=== PATIENT | male | born 1950 | race Caucasian/White ===

== ENCOUNTER 2018-05-24 19:50 | Observation (INO) | payer OTHER, MEDICARE ==
[~2018-05-24] VITALS: Ht 193 cm; Wt 97.7 kg
--- NOTE | ~2018-05-24 | HEMODYNAMI ---
PATIENT:SALLY WILLIAMSON MEDICAL RECORD: [id number] : 52 LOCATION:[facility] D.2121 ADMISSION DATE: 05/24/18 Generatedon:05/25/201813:20 Patient name: SALLY WILLIAMSON Patient #: [id number] SSN: : 1950 Date of study: 05/25/2018 Page: Of Hemodynamic Procedure Report Patient Data Patient Demographics Procedure consent was obtained First Name: SALLY Gender: Male Last Name: TERI : 1950 [facility] Initial: JUDIE Age: 68 year(s) Patient #: [id number] Race: Unknown Additional ID: [id number] Contact details Address: [place] [address] State: [place] City: [place] Zip code: [address] Admission Admission Data Admission Date: 05/24/2018 Admission Time: 21:27 Arrival Date: 05/24/2018 Arrival Time: 21:27 Admit Source: Other Insurance Payor: Private Room #: D.2121 health insurance Height (in.): 75.98 BSA: 2.28 (m2) Height (cm.): 193 BMI: 26.04 (kg/m2) Weight (lbs.): 213.85 Weight (kg.): 97 Lab Results Lab Result Date: 05/25/2018 Lab Result Time: 0:00 Biochemistry Name Units Result Min Max BUN mg/dl 18 --(---*)-- 7 18 Creatinine mg/dl 0.8 --(-*--)-- 0.6 1.3 CBC Name Units Result Min Max Hemoglobin g/dl 15 --(-*--)-- 13.5 17.5 Procedure Procedure Types Cath Procedure Diagnostic Procedure C LHC w/Coronaries Procedure Description Procedure Date Procedure Date: 05/25/2018 Procedure Start Time: 13:05 Procedure End Time: 13:19 Procedure Staff Name Function Dom Penaloza MD Performing Physician Amilcar Reddy RN Form Maker Maya Dawson RT Monitor Yareli Siddiqui RN Nurse Wendi Irvin RT Scrub Procedure Data Cath Procedure Fluoroscopy Diagnostic fluoroscopy Total fluoroscopy Time: 1.1 time: 1.1 min min Diagnostic fluoroscopy Total fluoroscopy dose: 381 dose: 381 mGy mGy Contrast Material Contrast Material Type Amount (ml) Isovue 300 63 Entry Location Entry Primary Successful Side Size Upsize Upsize Entry Closure Succes sful Closure Location (Fr) 1 (Fr) 2 (Fr) Remarks Device Remarks Femoral Right 5 Fr Exoseal artery Estimated blood loss: 5 ml Diagnostic catheters Device Type Used For End Catheter Placement MULTIPACK JL 4.0 5Fr Left Coronary catheter Angiography MULTIPACK 3DRC 5Fr Right Coronary catheter Angiography MULTIPACK Pigtail 5 Fr LV Angiography catheter Procedure Complications No complications Procedure Medications Medication Administration Route Dosage 0.9% NaCl I.V. 100 ml/hr Oxygen etCO2 Nasal cannula 2 l/min Lidocaine 2% added to field 20 Heparin Flush Bag added to field 2 bags (1000units/500ml NS) Versed I.V. 2 mg Fentanyl I.V. 50 mcg Versed I.V. 2 mg Fentanyl I.V. 50 mcg Hemodynamics Rest BSA: 2.28 (m2) HGB: 15 (g/dl) O2 Consumption: Estimated: 258.6 (ml/min) O2 Consu mption indexed: Estimated:113.42 (ml/min/m) Heart Rate: 63 (bpm) Pressure Samples Time Site Value (mmHg) Purpose Heart Use Rate(bpm) 13:11 LV 120/-1,16 Snapshot 75 13:12 AO 122/59(84) Pullback 73 13:12 LV 129/10,25 Pullback 73 Gradients Valve Time Site 1 Site 2 Mean SEP/DFP Peak To Heart Use (mmHg) (sec/min) Peak Rate (mmHg) (bpm) Aortic 13:12 LV AO 10 14 7 73 129/10,25 122/59(84) Calculations Valve P-P Mean Valve Index Valve Source Name Gradient Area Flow (cm2) Aortic 7 10 7 10 Snapshots Pre Cath Intra NCS Post Cath Vital Signs Time Heart Resp SPO2 etCO2 NIBP (mmHg) Rhythm Pain Sedation Rate (ipm) (%) (mmHg) Status Level (bpm) 12:52:36 68 12 100 29.4 144/84(120) NSR 0 (11) 10(A) , No pain 12:56:52 64 16 100 30.9 129/70(97) NSR 0 (11) 10(A) , No pain 13:01:04 66 11 100 25.6 118/67(95) NSR 0 (11) 10(A) , No pain 13:05:12 70 13 99 25.6 131/66(99) NSR 0 (11) 9(A) , No pain 13:09:24 72 11 99 35.4 125/71(101) NSR 0 (11) 9(A) , No pain 13:13:36 76 14 99 26.4 119/63(93) NSR 0 (11) 9(A) , No pain 13:17:46 71 13 98 30.6 132/61(98) NSR 0 (11) 10(A) , No pain Medications Time Medication Route Dose Verified Delivered Reason Notes Eff ectiveness by by 12:52:43 0.9% NaCl I.V. 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 2 mg Dom Yareli for Tremaine Siddiqui sedation RN 12:56:53 Fentanyl I.V. 50 Dom Yareli for mcg Tremaine Siddiqui sedation RN 13:01:49 Versed I.V. 2 mg Dom Yareli for Tremaine Siddiqui sedation RN 13:01:58 Fentanyl I.V. 50 Dom Yareli for mcg Tremaine Siddiqui sedation warehouse order picker Log Time Note 12:29:44 Amilcar Reddy RN sent for patient. Start room use. 12:29:45 Time tracking: Regular hours (M-F 7:00 - 5:00) 12:29:49 Plan of Care:Hemodynamics will remain stable., Cardiac rhythm will remain stable., Comfort level will be maintained., Respiratory function will remain adequate., Patient/ family verbilizes understanding of procedure., Procedure tolerated without complication., Recovers from procedure without complications.. 12:51:16 Patient received from PCU to CCL 2 Alert and oriented. Tansferred to table in Supine position. 12:51:17 Warm blankets applied, and elisabeth hugger turned on for patient comfort. 12:51:17 Correct patient and procedure confirmed by team. 12:51:18 Signed procedure consent form obtained from patient. 12:51:19 ECG and BP/O2 sat monitors applied to patient. 12:51:20 Full Disclosure recording started 12:51:25 Vital chart was started 12:52:43 0.9% NaCl 100 ml/hr I.V. was administered by Yareli Siddiqui RN; used for procedure; 12:52:50 Oxygen 2 l/min etCO2 Nasal cannula was administered by Yareli Siddiqui RN; used for procedure; 12:52:56 Lidocaine 2% 20ml vial added to field was administered by Dom Penaloza MD; for local anesthetic; 12:53:00 Heparin Flush Bag (1000units/500ml NS) 2 bags added to field was administered by Dom Penaloza MD; used for procedure; 12:54:46 Baseline sample Acquired. 12:54:49 Rhythm: sinus rhythm 12:54:57 H&P Date Dictated: 05/25/2018 New H&P dictated by physician.. 12:54:58 Pre-procedure instructions explained to patient. 12:54:59 Pre-op teaching completed and patient verbalized understanding. 12:55:02 Family in patients room. 12:55:03 Patient NPO since Midnight. 12:55:05 Is the patient allergic to Iodine/contrast media? No. 12:55:07 Was the patient premedicated? No 12:55:08 Is patient on blood thinner?No 12:55:09 Patient diabetic? No. 12:55:11 Previous problem with sedation/anesthesia? No ? 12:55:13 Snore? Yes 12:55:14 Sleep apnea? No 12:55:14 Deviated septum? No 12:55:15 Opens mouth fully? Yes 12:55:16 Sticks out tongue? Yes 12:55:17 Airway obstruction? No ? 12:55:22 Dentures? Yes in tight' 12:55:26 Pre procedure: right dorsailis pedis pulse 2+ Normal; easily identifiable; not easily obliterated 12:55:28 Pre procedure: left dorsailis pedis pulse 2+ Normal; easily identifiable; not easily obliterated 12:55:31 Patient pain scale 0/10 ?. 12:55:37 IV patent on arrival in right wrist with 0.9% NaCl at [facility]. 12:55:39 Lab results completed and on chart. 12:55:43 Right groin area was prepped with chlora-prep and draped in sterile fashion 12:55:44 Alarms reviewed by R. N. 12:55:44 Sharps counted by scrub and verified by R.N. 12:55:46 Physician arrived 12:55:46 --------ALL STOP TIME OUT------ 12:55:48 Final Timeout: patient, procedure, and site verified with staff and physician. All members of the team are in agreement. 12:55:49 Right groin site verified by team. 12:55:53 Maximum allowable Isovue 300 dose 300ml. Physician notified. (300ml for normal creatinines. For patients with creatinine of 1.7 or higher multiply weight(kg) x 5 divided by creatinine.) 12:55:56 Fire Safety Assessment: A--An alcohol-based skin anteseptic being used preoperatively., C--Open oxygen or nitrous oxide is being used., D--An ESU, laser, or fiber-optic light is being used. 12:56:00 Physical assessment completed. ASA score P 2 - A patient with mild systemic disease as per Dom Penaloza MD. 12:56:04 Sedation plan: IV Moderate Sedation Medication:Versed, Fentanyl 12:56:08 Use device set Femoral Dx 12:56:09 ACIST Syringe (26727) opened to sterile field. 12:56:09 Bag Decanter (2002S) opened to sterile field. 12:56:09 Medline Cath Pack ([id number]) opened to sterile field. 12:56:10 DIAGNOSTIC WIRE .035 260cm J wire (490356) opened to sterile field. 12:56:11 ACIST Hand Control (24136) opened to sterile field. 12:56:11 ACIST Manifold (88773) opened to sterile field. 12:56:12 DIAGNOSTIC Multipack 5Fr catheter set (ZZ4152) opened to sterile field. 12:56:12 Tegaderm 4 x 4 (1626W) opened to sterile field. 12:56:13 SHEATH 5FR [place] (GUL666) opened to sterile field. 12:56:47 Versed 2 mg I.V. was administered by Yareli Siddiqui RN; for sedation; 12:56:53 Fentanyl 50 mcg I.V. was administered by Yareli Siddiqui RN; for sedation; 12:57:26 Lab Result : Hemoglobin 15 g/dl 12:57:26 Lab Result : Creatinine 0.8 mg/dl 12:57:26 Lab Result : BUN 18 mg/dl 12:57:34 Admit Source: Other 12:57:39 Arrival Date: 05/24/2018 9:27:00 PM 12:57:45 Insurance Payor : Private health insurance 12:57:57 Patient Weight : 213.85 lbs 12:58:01 Patient Height : 75.98 inches 13:01:49 Versed 2 mg I.V. was administered by Yareli Siddiqui RN; for sedation; 13:01:58 Fentanyl 50 mcg I.V. was administered by Yareli Siddiqui RN; for sedation; 13:04:36 Procedure started. 13:05:59 Local anesthetic to right femoral artery with Lidocaine 2% by Dom Penaloza MD.INITIAL ACCESS ONLY 13:07:44 A 5 Fr sheath was inserted into the Right Femoral artery 13:07:49 A MULTIPACK JL 4.0 5Fr catheter was advanced over the wire and used for Left Coronary Angiography. 13:08:15 LCA angiography performed. 13:08:23 Injector settings: Ml/sec: 3, Volume: 6, 13:09:15 Catheter removed. 13:09:22 A MULTIPACK 3DRC 5Fr catheter was advanced over the wire and used for Right Coronary Angiography. 13:10:05 RCA angiography performed. 13:10:08 Injector settings: Ml/sec: 3, Volume: 6, 13:10:57 Catheter removed. 13:11:07 A MULTIPACK Pigtail 5 Fr catheter was advanced over the wire and used for LV Angiography. 13:11:54 LV hemodynamics recorded. 13:11:56 LV gram done using PEREZ 13:11:59 Injector settings: Ml/sec: 5, Volume: 15, 13:12:05 EF : 55 % 13:12:28 Catheter removed. 13:17:17 EXOSEAL 5Fr (EX500) opened to sterile field. 13:17:26 Sheath removed intact; hemostasis achieved with Exoseal to the Right Femoral artery. 13:17:29 Procedure ended.(Physican Out) 13:18:13 Fluoroscopy time 01.10 minutes. 13:18:21 Fluoroscopy dose: 381 mGy 13:18:21 Flurop Dose total: 381 13:18:32 Contrast amount:Isovue 300 63ml. 13:18:37 Sharps counted by scrub and verified by R.N. 13:18:39 Insertion/operative site no bleeding no hematoma. 13:18:41 Post-op/insertion site Right Femoral artery dressed using a 4 x 4 and Tegaderm. 13:18:42 Post Procedure Pulses reassessed and unchanged 13:18:45 Post procedure rhythm: unchanged. 13:18:48 Estimated blood loss: 5 ml 13:18:50 Post procedure instruction explained to patient.Patient verbalizes understanding. 13:18:51 Patient needs reinforcement of post procedure teaching. 13:19:00 Procedure and supply charges have been captured, reviewed, submitted and are correct. 13:19:04 Procedure Complication : No complications 13:19:07 Vital chart was stopped 13:19:07 See physician's report for complete and final results. 13:19:18 Report given to [facility]. 13:19:21 Patient transfered to [facility] with Stretcher. 13:19:24 Procedure ended. 13:19:24 Full Disclosure recording stopped 13:19:29 End room use (Document Last) Device Usage Item Name Manufacture Quantity Catalog Hospital Part Current Minimal L ot# / Number Charge Number Stock Stock Serial# Code ACIST Acist 1 84227 290052 654473 443385 20 Syringe Medical (69431) Systems Inc Bag Microtek 1 052857 82262 795751 5 Decanter Medical Inc. () Medline Medline 1 [id number] 097925 98738 776478 5 Cath Pack ([id number]) DIAGNOSTIC [facility] [place] 1 148577 552976 610672 723988 30 WIRE .035 260cm J wire (296744) ACIST Hand Acist 1 67897 813789 184704 576219 5 Control Medical (32446) Systems Inc ACIST Acist 1 62691 844383 694391 921242 5 Manifold Medical (36139) Systems Inc DIAGNOSTIC Cardinal 1 GT2727 481276 04569 549830 30 Multipack Health 5Fr catheter set (GZ2283) Tegaderm 4 3M 1 1626W 206608 131163 663757 5 x 4 (1626W) SHEATH 5FR Terumo 1 QWE628 898769 137844 639709 5 [place] (NRB182) MULTIPACK Cardinal 1 486569 5 JL 4.0 5Fr Health catheter MULTIPACK Cardinal 1 528136 5 3DRC 5Fr Health catheter MULTIPACK Cardinal 1 939228 5 Pigtail 5 Health Fr catheter EXOSEAL 5Fr Cardinal 1 EX500 725727 812672 967503 10 (EX500) Health Signature Audit [place] Stage Time Signature Unsigned Intra-Procedure 05/25/2018 Maya Dawson 1:20:20 PM RT(R) Signatures Monitor : Maya Dawson RT Signature : Date : Time : [address] [address]
[2018-05-24] MEDS ORDERED: TOPROL XL25 MG PO (20:10)
[2018-05-24] MEDS ORDERED: ARTHRITIS MEDS (20:10)
[2018-05-24 20:33] LABS: BASOPHILS 0.7 % (0-2); EOSINOPHILS 0.9 % (0-7); HEMATOCRIT 43.7 % (42.0-54.0); IMMATURE GRANULOCYTES 0.1 % (0-5); LYMPHOCYTES 29.8 % (15-50); MCH 32.3 pg (26.0-34.0); MCHC 34.3 g/dL (31.0-37.0); MCV 94.2 fL (80.0-100.0); MEAN PLATELET VOLUME 11.4 fL (7.4-10.4); MONOCYTES 5.1 % (2-11); NEUTROPHILS 63.4 % (40-80); PLATELET COUNT 234 10x3/uL (130-400); RBC 4.64 10x6/uL (4.20-6.10); RDW 14.1 % (11.5-14.5); WBC 7.5 10x3/uL (4.8-10.8)
[2018-05-24 20:45] LABS: APTT 28.5 SECONDS (22.8-39.4); INR 1.03 (0.85-1.17)
[2018-05-24 20:51] VITALS: BP 181/100
[2018-05-24 20:51] LABS: ALBUMIN 4.2 g/dL (3.4-5.0); ALKALINE PHOSPHATASE 74 U/L (46-116); ALT (SGPT) 64 U/L (10-68); BILIRUBIN - TOTAL 0.89 mg/dL (0.2-1.3); CALC OSMOLALITY 280 mosm/kg (275-300); CALCIUM 9.1 mg/dL (8.5-10.1); CARBON DIOXIDE 30.3 mmol/L (21.0-32.0); CHLORIDE - SERUM 100 mmol/L (98-107); CREATININE - SERUM 0.8 mg/dL (0.6-1.3); GLUCOSE 90 mg/dL (74-106); PROTEIN - SERUM 8.2 g/dL (6.4-8.2); SODIUM 140 mmol/L (136-145); UREA NITROGEN 18 mg/dL (7-18); eGFR NON AFRICAN AMERICAN > 90 mL/min (90-120)
[2018-05-24 21:06] LABS: CREATINE KINASE 98 UL (21-232); LIPASE 121 U/L (73-393); PRO BNP 138 pg/mL (0-125)
[2018-05-24 21:08] LABS: TROPONIN-I < 0.017 ng/mL (0.000-0.060)
[2018-05-24 21:09] VITALS: BP 139/73
[2018-05-24 21:50] VITALS: BP 130/83
--- NOTE | 2018-05-24 22:48 | NUR ---
PATIENT ARRIVED FROM ER. PATIENT IS ALERT AND ORIENTED, SITTING ON SIDE OF BED. RESPIRATIONS ARE EVEN AND UNLABORED. NO S/S OF DISTRESS. NO C/O PAIN. DENIES NEEDS AT THIS TIME. CALLLIGHT WITHIN REACH. WILL CPOC.
[2018-05-24] MEDS ORDERED: FOLIC ACID1 MG PO (22:49)
[2018-05-24] MEDS ORDERED: CALCIUM 500 +1 EAC3 PO (22:50)
[2018-05-24] MEDS ORDERED: ALLER-CHLOR4 MG PO (22:51)
[2018-05-24] MEDS ORDERED: ACETAMINOPHEN500 M1 PO (22:52)
[2018-05-24] MEDS ORDERED: ARAVA10 MG PO (22:53)
[2018-05-24] MEDS ORDERED: BAYER CHEWABLE81 MG PO (22:53)
[2018-05-24] MEDS ORDERED: HYDROCHLOROTHIA25 MG PO (22:56)
[2018-05-25 02:24] VITALS: BP 125/89; Ht 193 cm; Wt 97.7 kg
[2018-05-25 04:00] VITALS: BP 108/63
--- NOTE | 2018-05-25 04:01 | NUR ---
PATIENT RESTING COMFORTABLY IN BED. RESPIRATIONS ARE EVEN AND UNLABORED. NO S/S OF DISTRESS. CALL LIGHT WITHIN REACH. WILL CPOC.
[2018-05-25 08:17] VITALS: BP 100/62
[2018-05-25 08:24] LABS: ANION GAP 12.7 mmol/L (8-16); CALCIUM 8.4 mg/dL (8.5-10.1); CARBON DIOXIDE 28.3 mmol/L (21.0-32.0)
[2018-05-25 08:27] LABS: CREATININE - SERUM 1.1 mg/dL (0.6-1.3)
[2018-05-25 08:28] LABS: BASOPHILS 0.8 % (0-2); HEMATOCRIT 39.8 % (42.0-54.0); HEMOGLOBIN 13.4 g/dL (13.5-17.5); IMMATURE GRANULOCYTES 0.2 % (0-5); LYMPHOCYTES 41.5 % (15-50); MCH 31.6 pg (26.0-34.0); MCHC 33.7 g/dL (31.0-37.0); MCV 93.9 fL (80.0-100.0); MONOCYTES 6.5 % (2-11); PLATELET COUNT 225 10x3/uL (130-400); RBC 4.24 10x6/uL (4.20-6.10); RDW 14.1 % (11.5-14.5); WBC 6.4 10x3/uL (4.8-10.8)
--- NOTE | 2018-05-25 09:06 | NUR ---
CONSENTS SIGNED FOR [facility]. WILL CONT. PLAN OF CARE.
--- NOTE | 2018-05-25 09:47 | MORECARE ---
CASE MANAGEMENT DISCHARGE SUMMARY PATIENT: SALLY WILLIAMSON UNIT: [id number] ADM DATE: 05/24/18 AGE: 68 : 51 SEX: M ROOM/BED: D.2121 AUTHOR: SHANON SNELL PHYSICIAN: REFERRING PHYSICIAN: PAULINA SANCHEZ MD DATE OF SERVICE: 05/25/18 Discharge Plan Patient Name: SALLY WILLIAMSON [facility] [facility] 1950 Planned Disposition: Home Anticipated Discharge Date: 05/25/18 Discharge Date: Expected LOS: 1 Initial Reviewer: [email or web address] Initial Review Date: 05/24/2018 Generated: 05/25/18 10:47 am DCPIA - Discharge Planning Initial Assessment Updated by [email or web address]: John Castillo on 05/25/18 9:46 am * Is the patient Alert and Oriented? Yes * How many steps to enter\exit or inside your home? * PCP DR[facility] QU[facility]OS, [place] [facility] [place] * Pharmacy [facility] IN [place] * Preadmission Environment Home Alone * ADLs Independent * Equipment None * Other Equipment [facility] - MEDICAL EQUIPMENT PROVIDER PREFERENCE * List name and contact numbers for known caregivers / representatives who currently or will assist patient after discharge: GARETH SUAREZ, FRIEND, PATY WILLIAMSON, MOTHER, * Verbal permission to speak to the caregivers and representatives has been obtained from the patient. N/A * Community resources currently utilized None * Please name any agencies selected above. NONE * Additional services required to return to the preadmission environment? No * Can the patient safely return to the preadmission environment? Yes * Has this patient been hospitalized within the prior 30 days at any hospital? No Patient Name: SALLY WILLIAMSON Page 02820 at 0947 All edits/amendments must be made on the electronic document DICTATION DATE: 05/25/18945 LEGAL DEPARTMENT MANAGER: SHIMON 05/25/18945 RPT#: [id number] DC DATE: STATUS: ADM IN [facility] [address] [place] [address] END OF REPORT
--- NOTE | 2018-05-25 09:53 | MORECARE ---
CASE MANAGEMENT DISCHARGE SUMMARY PATIENT: SALLY WILLIAMSON UNIT: [id number] ADM DATE: 05/24/18 AGE: 68 : 51 SEX: M ROOM/BED: D.0273 AUTHOR: SHANON SNELL PHYSICIAN: REFERRING PHYSICIAN: PAULINA SANCHEZ MD DATE OF SERVICE: 05/25/18 Discharge Plan Patient Name: SALLY WILLIAMSON [facility] [facility] 1950 Planned Disposition: Home Anticipated Discharge Date: 05/25/18 Discharge Date: Expected LOS: 1 Initial Reviewer: [email or web address] Initial Review Date: 05/24/2018 Generated: 05/25/18 10:53 am Comments DCP- Discharge Planning Updated by [email or web address]: John Castillo on 05/25/18 8:[address] Patient Name: SALLY WILLIAMSON Admission Status: ER Accout number: [id number] Admission Date: 05-24-2018 : 1950 Admission Diagnosis: Attending: PAULINA SANCHEZ Current LOS: 1 Anticipated DC Date: 05-25-2018 Planned Disposition: Home Primary Insurance: [employer] Discharge Planning Comments: CM REVIEWED CHART, PT IN OBSERVATION WITH VA PRIMARY INSURANCE, NO NOTES INDICATING VA HAD BEEN CONTACTED. CM MET WITH PT IN ROOM TO DISCUSS DISCHARGE PLANNING AND NEEDS. PT REPORTS LIVING AT HOME INDEPENDENTLY AND ALONE. PT HAS NO MEDICAL EQUIPMENT AND NO OUTSIDE SERVICES ASSISTING IN THE HOME. CM DISCUSSED AVAILABILITY OF HOME HEALTH, REHAB SERVICES AND MEDICAL EQUIPMENT. PT DENIES DISCHARGE NEEDS, REPORTS HIS FRIEND WILL PICK HIM UP FOR DISCHARGE HOME. PT REPORTS HE WAS TOLD THE VA WOULD COVER HIS STAY HERE BUT NO ONE HAS CALLED THE VA TO HIS KNOWLEDGE. PT DID CALL THE [facility] [place] THIS MORNING TO NOTIFY THEM HE IS IN THE HOSPITAL HE HAD AN APPOINTMENT WITH THEM FOR TODAY. PT IS WILLING FOR VA TRANSFER IF NEEDED. CM CALLED [place] [facility], , SPOKE TO SUSAN, PROVIDED INFORMATION TO PLACE PT ON THE VA TRANSFER LIST. PT IS WILLING FOR VA TRANSFER IF NEEDED. PT IS ON THE VA TRANSFER LIST. PT PLANS TO DISCHARGE HOME ALONE, FRIEND WILL TRANSPORT HOME AT DISCHARGE, PT DENIES DISCHARGE NEEDS AT THIS TIME. CM TO FOLLOW AND ASSIST IF NEEDED. Commissioner Of Internal Revenue: John Castillo DCPIA - Discharge Planning Initial Assessment Updated by [email or web address]: John Castillo on 05/25/18 9:46 am * Is the patient Alert and Oriented? Yes * How many steps to enter\exit or inside your home? * PCP DR[facility] QU[facility]OS, [place] [facility] [place] * Pharmacy [facility] IN [place] * Preadmission Environment Home Alone * ADLs Independent * Equipment None * Other Equipment [facility] - MEDICAL EQUIPMENT PROVIDER PREFERENCE * List name and contact numbers for known caregivers / representatives who currently or will assist patient after discharge: GARETH SUAREZ, FRIEND, PATY WILLIAMSON, MOTHER, * Verbal permission to speak to the caregivers and representatives has been obtained from the patient. N/A * Community resources currently utilized None * Please name any agencies selected above. NONE * Additional services required to return to the preadmission environment? No * Can the patient safely return to the preadmission environment? Yes * Has this patient been hospitalized within the prior 30 days at any hospital? No Last DP export: 05/25/18 8:47 a Patient Name: SALLY WILLIAMSON Page 47974 at 0953 All edits/amendments must be made on the electronic document DICTATION DATE: 05/25/18952 DEAN OF MEN: SHIMON 05/25/18952 RPT#: [id number] DC DATE: STATUS: ADM IN [facility] [address] [place] [address] END OF REPORT
[2018-05-25 12:22] VITALS: BP 103/65
--- NOTE | 2018-05-25 13:03 | NUR ---
PRE-OPS GIVEN. TO AUTOMOTIVE SALES PROFESSIONAL BY BED.
--- NOTE | 2018-05-25 13:30 | NUR ---
PT RECEIVED VIA STRETCHER FROM TELEGRAPH MECHANIC FOR RECOVERY. PT DROWSY BUT AROUSES TO VERBAL STIMULI. 5FR EXOCELE TO R GROIN, DRESSING CDI NO BLEEDING OR SWELLING NOTED. SITE SOFT TO TOUCH. PT INSTRUCTED TO KEEP HEAD ON PILLOW AND LEG STRAIGHT. PT VERBALIZED UNDERSTANDING. HR NSR RATE 71, BP 109/66, O2 SAT 100 ON 2L/NC. R PEDAL PULSES PALPABLE, LEG WARM AND PINK. CALL LIGHT IN REACH, PT DENIES NEEDS.
--- NOTE | 2018-05-25 13:45 | NUR ---
PT RESTING COMFORTABLY, R GROIN SOFT, NO BLEEDING OR SWELLING NOTED. PEDAL PULSES PALPABLE. CALL LIGHT IN REACH, PT DENIES NEEDS. HR 56, BP 105/60, 02 SAT 99 ON 2L/NC
--- NOTE | 2018-05-25 14:15 | NUR ---
PT RESTING COMFORTABLY, VSS. R GROIN REMAINS SOFT TO TOUCH, NO BLEEDING OR SWELLING NOTED. PEDAL PULSES PALABLE. PT DENIES PAIN OR NEEDS. CALL LIGHT IN REACH
--- NOTE | 2018-05-25 14:35 | NUR ---
PT AWAKE BUT SOME DROWSY, DENIE PAIN OR NEEDS. R GROIN SOFT, DRESSING REMAINS CDI NO BLEEDING OR SWELLING NOTED. VSS. PEDAL PULSES PALPABLE. CALL LIGHT IN REACH
--- NOTE | 2018-05-25 14:50 | NUR ---
HOB ELEVATED, O2 REMOVED. SANDWICH AND COLA SERVED. GROIN DRESSING CDI NO BLEEDING OR SWELLING NOTED. CALL LIGHT IN REACH
--- NOTE | 2018-05-25 15:20 | NUR ---
IV REMOVED W CATH INTACT. MONITORS REMOVED. R GROIN REMAINS SOFT, NO BLEEDING OR SWELLING NOTED.
--- NOTE | 2018-05-25 15:30 | NUR ---
DISCHARGE INSTRUCTIONS REVIEWED W PT, HE VERBALIZED UNDERSTANDING. PT UP TO DRESS FOR DISCHARGE.
--- NOTE | 2018-05-25 15:45 | NUR ---
DISCHARGE ORDER RECEIVED PER KELLE AGUILAR APN. PT DISCHARGED VIA WC TO PRIVATE VEHICLE.
== END 2018-05-25 15:50 | disposition home or self-care (01) ==
LOC: D.ER 19:50 → D.EDHOLD 21:27 → D.M2 21:27 → OBSVTIME 21:28 → D.M2 21:51 → D.CLR 05-25 13:29
PROVIDERS: Family Medicine; ADMIT Family Medicine; ATTEND Internal Medicine Cardiovascular Disease
DX: I20.0 Unstable angina (principal); I10 Essential (primary) hypertension; I48.91 Unspecified atrial fibrillation; Z87.891 Personal history of nicotine dependence

== ENCOUNTER 2018-05-27 12:26 | Emergency (ER) | payer OTHER ==
[~2018-05-27] VITALS: Ht 193 cm; Wt 95.5 kg
[~2018-05-27 12:26] MED LIST: ACETAMINOPHEN500 M1 PO; ALLER-CHLOR4 MG PO; ARAVA10 MG PO; ARTHRITIS MEDS; BAYER CHEWABLE81 MG PO; CALCIUM 500 +1 EAC3 PO; FOLIC ACID1 MG PO; HYDROCHLOROTHIA25 MG PO; TOPROL XL25 MG PO
[2018-05-27 12:27] VITALS: Ht 193 cm; Wt 95.5 kg
[2018-05-27 14:00] LABS: BASOPHILS 0.4 % (0-2); EOSINOPHILS 0.3 % (0-7); HEMATOCRIT 41.3 % (42.0-54.0); HEMOGLOBIN 13.9 g/dL (13.5-17.5); IMMATURE GRANULOCYTES 0.1 % (0-5); LYMPHOCYTES 21.4 % (15-50); MCH 31.8 pg (26.0-34.0); MCHC 33.7 g/dL (31.0-37.0); MCV 94.5 fL (80.0-100.0); MEAN PLATELET VOLUME 11.3 fL (7.4-10.4); MONOCYTES 4.5 % (2-11); NEUTROPHILS 73.3 % (40-80); PLATELET COUNT 209 10x3/uL (130-400); RBC 4.37 10x6/uL (4.20-6.10); WBC 6.9 10x3/uL (4.8-10.8)
[2018-05-27 14:26] LABS: ALBUMIN 3.7 g/dL (3.4-5.0); ALKALINE PHOSPHATASE 63 U/L (46-116); ALT (SGPT) 36 U/L (10-68); BILIRUBIN - TOTAL 0.51 mg/dL (0.2-1.3); CALC OSMOLALITY 282 mosm/kg (275-300); CALCIUM 9.4 mg/dL (8.5-10.1); CARBON DIOXIDE 32.1 mmol/L (21.0-32.0); CHLORIDE - SERUM 103 mmol/L (98-107); CREATININE - SERUM 0.9 mg/dL (0.6-1.3); GLUCOSE 123 mg/dL (74-106); POTASSIUM - SERUM 3.1 mmol/L (3.5-5.1); PROTEIN - SERUM 7.1 g/dL (6.4-8.2); SODIUM 141 mmol/L (136-145); UREA NITROGEN 15 mg/dL (7-18); eGFR NON AFRICAN AMERICAN 89 mL/min (90-120)
[2018-05-27 14:33] LABS: CKMB 1.3 U/L (0.0-3.6); CREATINE KINASE 49 UL (21-232); TROPONIN-I < 0.017 ng/mL (0.000-0.060)
[2018-05-27] MEDS ORDERED: NORVASC5 MG PO (15:01)
[2018-05-27 15:11] VITALS: BP 134/82
== END 2018-05-27 15:12 | disposition home or self-care (01) ==
LOC: D.ER 12:26
PROVIDERS: Family Medicine
DX: I10 Essential (primary) hypertension (principal); R00.1 Bradycardia, unspecified